=== PATIENT | male | born 1970 | race Caucasian/White ===

== ENCOUNTER 2017-04-03 18:13 | Inpatient (IN) | payer OTHER ==
[~2017-04-03] VITALS: Ht 188 cm; Wt 81.0 kg
--- NOTE | ~2017-04-03 | DS ---
Unit #: [id number] #: [id number] Patient: KARLA POOLE [id number] [facility]. [place], [place] [address] [id number] MR#: [id number] NAME: KARLA POOLE ROOM: [facility] Age: 46 Sex: M Admission Date: 04/03/2017 : 1970 Discharge Date: 04/04/2017 Attending Physician: Maximiliano Castillo M.D. Referring Physician: Evan Canchola M.D. Primary Care Physician: Evan Canchola M.D. DISCHARGE SUMMARY CHIEF COMPLAINT Found down. HISTORY OF PRESENT ILLNESS This is a 46-year-old gentleman who has a history of emphysema, anxiety, depression and epilepsy but has not had any seizures for the last 8 years. Approximately one month ago his Keppra was decreased to 500 mg twice a day from 1 gram twice a day. He was well, according to this . Complained of some mild nausea, per phone call at 1:30. At 5:30 in the evening his found him to be basically unresponsive and was brought to the emergency room. In the emergency room, according to the ER T sheet, there was concern of overdose, but the insists that no extra pills were taken. He is on multiple medications, however. Although it is not well documented, apparently had a seizure, ultimately got intubated. He received Narcan initially in the ER, ultimately received etomidate, vecuronium, Keppra, Vimpat. Our neurologist [place] of the country; however, he has been communicated with and has suggested transfer to [facility] [place] [facility] for further workup. The concern is nonconvulsive status. He has been bolused with Keppra, Vimpat and is now on a Versed drip, per his recommendations. Obviously the patient is heavily sedated, unresponsive and cannot add to the history. PAST MEDICAL HISTORY Past medical history is remarkable for emphysema, anxiety, depression and epilepsy. MEDICATIONS His medications at home are somewhat unclear. He was on his Keppra. He has an albuterol inhaler, which he rarely uses, Klonopin, Percocet, possibly Remeron. The says she does not know all of his medications. ALLERGIES No known medical allergies. SOCIAL HISTORY He smokes, socially drinks. No recreational drug use, except marijuana. FAMILY HISTORY Family history is basically unobtainable. REVIEW OF SYSTEMS Review of systems is unobtainable from the patient obviously. The Unit #: [id number] #: [id number] Patient: KARLA POOLE states that he has had no fever, any type of URI symptoms, no vomiting, mild nausea, no abdominal pain, hematuria, leg pain, swelling, focal weakness, paresthesias, chills, shortness of breath, etc. The said that the patient was in his normal state of health. He has chronic headaches, but his headaches have not changed in quality or quantity or character. PHYSICAL EXAMINATION GENERAL: Examination reveals a gentleman who is unresponsive. VITAL SIGNS: He is afebrile. Pulse 96, respiratory rate 17, blood pressure 144/70. He is 6'2", 178 pounds. HEENT: Pupils are sluggish at best. He is unresponsive. Head atraumatic. He is orally intubated. NECK: Supple but, again, heavily sedated. CHEST: Equal breath sounds. No wheeze, stridor, consolidation. CARDIAC: Examination reveals a regular rate and rhythm. No pathologic murmur, rub or gallop. ABDOMEN: Abdomen is soft, nontender. No hepatomegaly or rebound. EXTREMITIES: Extremities reveal no clubbing, cyanosis or edema. No calf tenderness. SKIN: Warm and dry without rash or diaphoresis. NEUROLOGIC: Unresponsive. DIAGNOSTIC STUDIES IMAGING: Chest x-ray - ET tube in adequate position. Some scattered subsegmental atelectasis. No obvious pneumonia. LABORATORY EXAMINATION: His pH is 7.3, pCO2 38, pO2 248 on assist control of 16, breathing 16, tidal volume of 550, 50% and 5 of PEEP. His BUN is 14, creatinine is 1, ammonia 20, lactic acid 0.7. Tylenol, salicylate, alcohol levels negative. INR normal. Cardiac enzymes normal. White blood cell count 14.2, hemoglobin 12.4, platelet count 175. Tox screen positive for benzodiazepines, marijuana and TCA. Urinalysis unremarkable. Blood cultures performed and are pending. CARDIOVASCULAR: EKG fairly unremarkable. QRS mildly widened. IMPRESSION Found down. At this point the etiology of his unresponsiveness initially is unclear. Certainly has exposure to multiple mind-altering medications, so overdose must be considered. He does have epilepsy and apparently has had multiple seizures through the night, although they were short lived, according to the few nursing notes to which I have access. Nonconvulsive status must be considered. Other problems include a history of emphysema, tobacco use, anxiety and depression, and mild non-gap acidosis. PLAN I will adjust antibiotics in the off chance of meningitis. Consider a lumbar puncture. Transfer to [facility] for EEG. Unfortunately, our neurologist is out of the country. No one is present to read an EEG and certainly must rule out nonconvulsive status. I am not convinced that is the etiology of his coma. However, for now, will follow guidelines of our neurologist, transfer, heavily sedate and treat possible seizures. Certainly, workup for other causes is mandatory. Of note, initial CT scan of the head was normal. TRANSFER MEDICATIONS 1. A Versed drip. Unit #: [id number] #: [id number] Patient: KARLA POOLE 2. Rocephin 2 grams q.12. 3. Vancomycin, pharmacy to dose. 4. Keppra 1 gram b.i.d. 5. Vimpat 200 mg t.i.d. 6. Pepcid 20 mg b.i.d. 7. DVT prophylaxis, SCDs. 8. Blood thinners will be held in case of procedures required. DIET NPO for now. ACTIVITY ICU mechanical ventilation. DISPOSITION [facility]. Dictated by... Maximo Benitez M.D. NYA/narinder TD: 04/04/2017 09:02 JOB #: [id number] DISCHARGE SUMMARY Page 1 of 1 X Maximo Benitez MD X DISCHARGE SUMMARY
--- NOTE | ~2017-04-03 | CT71 ---
[facility] A Service of [facility] & [facility] RADIOLOGY TEXT RESULTS PATIENT: KARLA POOLE LOCATION: [facility]3 [facility]3-14 : [birth year] UNIT #: [id number] AGE: [address]: Maximiliano Castillo MD SEX: M ORDER DR: [id number] [facility] [address] [place], [place] [address] [id number] E MR#: [id number] Acc #: [id number] NAME: KARLA POOLE : 1970 SEX: M STUDY DATE/TIME: 04/03/2017 19:13 UNIT: [facility] ROOM: STUDY DESCRIPTION: CT Head Wo Contrast Attending Physician: Michelle Devi M.D. Referring Physician: Evan Canchola M.D. Ordering Physician: Michelle Devi M.D. Primary Care Physician: Evan Canchola M.D. MEDICAL IMAGING REPORT This report is preliminary unless electronic signature is present EXAM CT head 04/03/2017 HISTORY Seizures. Unconscious. Unresponsive prior to arrival today. TECHNIQUE CT head performed skull base through vertex. This CT exam was performed with one or more of the following radiation dose reduction techniques: automatic exposure control, adjustment of mA and/or kV according to patient size, and iterative reconstruction. FINDINGS Brainstem unremarkable. Cerebellum and cerebral hemispheres show normal peraza matter-white matter differentiation. No hemorrhage. No evidence of acute cortical ischemia. The midline structures are nondisplaced. The basal ganglia are intact. The ventricles, cisterns and sulci are normal in size and contour. The intraorbital soft tissues are unremarkable. There is no intra- or extraaxial mass effect or abnormal intracranial fluid collection. Study degraded by streak artifact from supportive equipment adjacent to the head, not moved out of field of view prior to study. There is mucosal thickening in frontal, ethmoid, maxillary sinuses. There is no indication of acute sinusitis. No fracture. IMPRESSION 1. No acute abnormality is seen in the brain. If the patient has ongoing neurologic symptoms, consider follow-up imaging. 2. Mild mucosal thickening frontal, ethmoid, maxillary sinuses. There is no indication of acute sinusitis. [facility] A Service of [facility] & [facility] RADIOLOGY TEXT RESULTS PATIENT: KARLA POOLE LOCATION: [facility]3 [facility]3-14 : [birth year] UNIT #: [id number] AGE: [address]: Maximiliano Castillo MD SEX: M ORDER DR: Dictated by... Travon Feliz M.D. THIS IS AN ELECTRONICALLY VERIFIED REPORT Travon Feliz M.D. at 04/03/2017 11:32 PM KORINA/tomas TD: 04/03/2017 20:44 JOB #: [id number] MEDICAL IMAGING REPORT Page 1 of 1 COPY
--- NOTE | ~2017-04-03 | CR72 ---
[facility] A Service of [facility] & [facility] RADIOLOGY TEXT RESULTS PATIENT: KARLA POOLE [facility] [birth year] UNIT #: [id number] AGE: [address]: Maximiliano Castillo MD SEX: M ORDER DR: [id number] [facility] [address] [place], [place] [address] [id number] MR#: [id number] Acc #: [id number] NAME: KARLA POOLE : 1970 SEX: M STUDY DATE/TIME: 04/03/2017 18:55 UNIT: [facility] ROOM: STUDY DESCRIPTION: CR Chest Single View Portable Attending Physician: Michelle Devi M.D. Referring Physician: Evan Canchola M.D. Ordering Physician: Angeline Infante M.D. Primary Care Physician: Evan Canchola M.D. MEDICAL IMAGING REPORT This report is preliminary unless electronic signature is present EXAM Portable chest, 04/03/2017. HISTORY Respiratory failure, intubated, patient unconscious and unresponsive, found down. History of seizures. FINDINGS There is no prior chest radiograph for comparison. The heart is normal in size. The tip of the endotracheal tube is approximately 4 cm above the mehul. Right subclavian central line tip is in the superior vena cava. There is no pneumothorax. Nasogastric tube has been inserted with tip below the diaphragm not visualized. Poor inspiratory result with bibasilar atelectasis. Lungs are otherwise clear. There are no pleural effusions. IMPRESSION Endotracheal tube 4 cm above the mehul. Right subclavian central line tip SVC. No pneumothorax. Nasogastric tube tip below the diaphragm not visualized. Bibasilar atelectasis. Dictated by... Elroy Garvey M.D. THIS IS AN ELECTRONICALLY VERIFIED REPORT Elroy Garvey M.D. at 04/04/2017 7:36 AM JULIO/sandy TD: 04/03/2017 20:23 JOB #: [id number] MEDICAL IMAGING REPORT [facility]. [facility] A Service of [facility] & [facility] RADIOLOGY TEXT RESULTS PATIENT: KARLA POOLE LOCATION: [facility]14 : [birth year] UNIT #: [id number] AGE: [address]: Maximiliano Castillo MD SEX: M ORDER DR: Page 1 of 1 COPY
--- NOTE | ~2017-04-03 | EKG ---
PATIENT: KARLA POOLE UNIT #: [id number] Ventricular Rate: 79 BPM Atrial Rate: 79 BPM P-R Interval: 190 ms QRS Duration: 170 ms Q-T Interval: 470 ms QTC Calculation(Bezet): 538 ms P [place]: 38 degrees Calculated R [place]: 105 degrees Calculated T [place]: 45 degrees Diagnosis Line: Normal sinus rhythm Diagnosis Line: Rightward axis Diagnosis Line: Non-specific intra-ventricular conduction block Diagnosis Line: Abnormal ECG Diagnosis Line: Diagnosis Line: Confirmed by ISIDORO BEAVERS MD ([id number]) on 04/04/2017 Diagnosis Line: 7:39:28 PM INTERPRETING MD: RUTHANN ANGULO
--- NOTE | ~2017-04-03 | CR72 ---
[facility] A Service of [facility] & [facility] RADIOLOGY TEXT RESULTS PATIENT: KARLA POOLE LOCATION: [address] : [birth year] UNIT #: [id number] AGE: [address]: Maximiliano Castillo MD SEX: M ORDER DR: [id number] [facility] [address] [place], [place] [address] [id number] I MR#: [id number] Acc #: [id number] NAME: KARLA POOLE : 1970 SEX: M STUDY DATE/TIME: 04/04/2017 2:24 UNIT: [facility] ROOM: [facility] STUDY DESCRIPTION: CR Chest Single View Portable Attending Physician: Maximiliano Castillo M.D. Referring Physician: Evan Canchola M.D. Ordering Physician: Maximiliano Castillo M.D. Primary Care Physician: Evna Canchola M.D. MEDICAL IMAGING REPORT This report is preliminary unless electronic signature is present EXAMINATION AP portable chest DATE: 04/04/2017 HISTORY 46-year-old male with risk heart failure, shortness of breath. Symptoms began 2 days ago. Unresponsive. Found down. Previous history of seizures. COMPARISON AP portable chest 04/03/2017. FINDINGS ET tube tip lies in the upper thoracic trachea approximately 7.2 cm above the mehul. Right neck approach central line extends to the upper SVC level. There is linear bibasilar subsegmental atelectasis or scarring without significant change. Normal heart size. The NG tube is shallow, with the tip located at the esophagogastric junction and the side-hole in the lower thoracic esophageal region. IMPRESSION 1. The NG tube is shallow with the tip located at the esophagogastric junction. Recommend advancing several centimeters into the stomach. 2. Persistent bibasilar linear band-like subsegmental atelectasis. 3. ET tube tip in the upper thoracic trachea about 7 cm above the mehul, unchanged. Dictated by... Nida Lewis M.D. THIS IS AN ELECTRONICALLY VERIFIED REPORT Nida Lewis M.D. at 04/04/2017 9:55 PM [facility]/m [facility] A Service of [facility] & [facility] RADIOLOGY TEXT RESULTS PATIENT: KARLA POOLE LOCATION: [address] : [birth year] UNIT #: [id number] AGE: [address]: Maximiliano Castillo MD SEX: M ORDER DR: TD: 04/04/2017 07:24 JOB #: [id number] MEDICAL IMAGING REPORT Page 1 of 1 COPY
[~2017-04-03 18:13] MED LIST: ALLEGRA-D1 TAB.SR1 PO; KEPPRA750 MG PO; LORTAB 5/500 TA1 TA2 PO; Z-CLINZ 10 PAC1 EA PO
[2017-04-03 18:42] LABS: ARTERIAL BLD GAS O2 SATURATION 96.7 % (90.0-100.0); ARTERIAL BLOOD GAS MET HB 0.8 %sat (0.0-2.0); ARTERIAL BLOOD GAS PCO2 39.4 mmHg (35.0-45.0); ARTERIAL BLOOD GAS pH 7.334 (7.350-7.450)
[2017-04-03 18:44] LABS: ARTERIAL BLOOD GAS ART SITE RIGHT FEMORAL; ARTERIAL BLOOD GAS DELIVERY VENT; ARTERIAL BLOOD GAS VENT MODE AC; ARTERIAL DRAW? YES
[2017-04-03 19:16] LABS: URINE SOURCE CATH
[2017-04-03 19:19] LABS: POC - CKMB <1.0 ng/mL (0.0-7.9); POC - TROPONIN <0.05 ng/mL (<=0.05)
[2017-04-03 19:22] LABS: URINE APPEARANCE CLEAR; URINE BILIRUBIN NEG (NEG); URINE BLOOD NEG (NEG); URINE COLOR YELLOW; URINE GLUCOSE NEG (NEG); URINE KETONE NEG (NEG); URINE LEUKOCYTE ESTERASE NEG (NEG); URINE NITRATE NEG (NEG); URINE PROTEIN NEG (NEG); URINE SPECIFIC GRAVITY 1.011 (1.003-1.035); URINE UROBILINOGEN 0.2 MG/DL (NEG)
[2017-04-03 19:23] LABS: BASOPHIL% 0.3 % (0-2.5); EOSINOPHIL% 0.2 % (0.0-7.0); HEMATOCRIT 38.4 % (38.0-50.0); HEMOGLOBIN 12.9 gm/dL (13.0-16.0); LYMPHOCYTE# 0.9 X10e3 (1.0-3.5); LYMPHOCYTE% 7.5 % (17.0-45.0); MEAN CELL VOLUME 91.2 FL (83-96); MEAN CORPUSCULAR HEMOGLOBIN 30.6 PG (28-34); MEAN CORPUSCULAR HGB CONC 33.6 g/dL (30-36); MEAN PLATELET VOLUME 9.2 FL (6.5-11.5); MONOCYTE# 0.4 X10e3 (0-1.0); MONOCYTE% 3.1 % (3.0-12.0); NEUTROPHIL# 10.4 X10e3 (1.5-7.1); NEUTROPHIL% 88.9 % (40-75); PLATELET COUNT 180 X10e3 (140-420); RED BLOOD COUNT 4.22 X10e (3.90-5.60); RED CELL DISTRIBUTION WIDTH 14.6 % (11.0-15.5); WHITE BLOOD COUNT 11.7 X10e3 (4.0-10.5)
[2017-04-03 19:34] LABS: AMPHETAMINE NEG (NEG); BARBITURATES NEG (NEG); BENZODIAZEPINES POS (NEG); COCAINE NEG (NEG); MARIJUANA POS (NEG); OPIATES NEG (NEG); TRICYCLIC ANTIDEPRESSANTS POS (NEG); U METHADONE NEG (NEG)
[2017-04-03 19:53] LABS: DIFF IND NO
[2017-04-03 19:54] LABS: CULTURE INDICATED? NO
[2017-04-03 20:00] LABS: INR 1.2; PARTIAL THROMBOPLASTIN TIME 30.5 SECONDS (23.5-31.3); PROTHROMBIN TIME (PATIENT) 12.5 SECONDS (10.0-11.7)
[2017-04-03 20:01] LABS: ACETAMINOPHEN <10 ug/mL; ALBUMIN SERUM 3.5 g/dL (3.5-5.0); ALCOHOL BLOOD <5 mg/dL (0); ALKALINE PHOSPHATASE 72 U/L (32-92); ALT (SGPT) 10 U/L (10-40); AST (SGOT) 13 U/L (10-42); BILIRUBIN, DIRECT 0.1 mg/dL (0.0-0.2); BILIRUBIN,INDIRECT 0.5 mg/dL (0.0-0.9); BILIRUBIN,TOTAL 0.6 mg/dL (0.2-2.0); BLOOD UREA NITROGEN 15 mg/dL (9-23); BUN/CREATININE RATIO 13.63; CALCIUM SERUM 7.6 mg/dL (8.4-10.2); CARBON DIOXIDE 21 mmol/L (22-31); CHLORIDE 114 mmol/L (100-111); CREATININE SERUM 1.1 mg/dL (0.6-1.4); GLUCOSE FASTING 111 mg/dL (70-110); POTASSIUM 2.9 mmol/L (3.5-5.1); PROTEIN TOTAL SERUM 6.1 g/dL (6.0-8.3); SALICYLATE <4.0 mg/dL; SODIUM 140 mmol/L (135-145)
[2017-04-04] MEDS ORDERED: KEPPRA1000 MG PO (00:33)
[2017-04-04] MEDS ORDERED: KEPPRA500 MG PO (00:34)
[2017-04-04] MEDS ORDERED: KLONOPIN2 MG PO (00:34)
[2017-04-04] MEDS ORDERED: AMITRYPTYLINE PO (00:37)
[2017-04-04] MEDS ORDERED: PERCOCET10 PO (00:37)
[2017-04-04 04:09] LABS: ARTERIAL BLD GAS O2 SATURATION 98.8 % (90.0-100.0); ARTERIAL BLOOD GAS CARBOXY HB 0.3 %sat (0.0-9.0); ARTERIAL BLOOD GAS HCO3 18.8 mmol/L; ARTERIAL BLOOD GAS MET HB 0.8 %sat (0.0-2.0); ARTERIAL BLOOD GAS pH 7.304 (7.350-7.450)
[2017-04-04 04:18] LABS: ARTERIAL BLOOD GAS ALLEN TEST NORMAL; ARTERIAL BLOOD GAS ART SITE RIGHT RADIAL; ARTERIAL BLOOD GAS DELIVERY VENT; ARTERIAL BLOOD GAS VENT MODE AC; ARTERIAL DRAW? YES
[2017-04-04 06:22] LABS: BASOPHIL% 0.1 % (0-2.5); HEMATOCRIT 37.7 % (38.0-50.0); HEMOGLOBIN 12.4 gm/dL (13.0-16.0); LYMPHOCYTE# 1.1 X10e3 (1.0-3.5); LYMPHOCYTE% 7.7 % (17.0-45.0); MEAN CELL VOLUME 91.9 FL (83-96); MEAN CORPUSCULAR HEMOGLOBIN 30.3 PG (28-34); MEAN PLATELET VOLUME 9.6 FL (6.5-11.5); MONOCYTE# 0.6 X10e3 (0-1.0); MONOCYTE% 4.5 % (3.0-12.0); NEUTROPHIL# 12.5 X10e3 (1.5-7.1); NEUTROPHIL% 87.7 % (40-75); PLATELET COUNT 175 X10e3 (140-420); RED CELL DISTRIBUTION WIDTH 14.6 % (11.0-15.5); WHITE BLOOD COUNT 14.2 X10e3 (4.0-10.5)
[2017-04-04 06:30] LABS: DIFF IND NO
[2017-04-04 07:12] LABS: ALBUMIN SERUM 3.2 g/dL (3.5-5.0); BILIRUBIN,TOTAL 0.6 mg/dL (0.2-2.0); CALCIUM SERUM 7.5 mg/dL (8.4-10.2); GLOM FILT RATE Estimated 88.6 mL/min (>60); MAGNESIUM 2.1 mg/dL (1.6-3.0); POTASSIUM 3.9 mmol/L (3.5-5.1); PROTEIN TOTAL SERUM 5.7 g/dL (6.0-8.3)
== END 2017-04-04 10:45 | disposition hospice, home (50) | DRG 100 ==
LOC: CED 18:13 → CEDOF 20:46 → CICCU3 21:14 → CED 21:14 → CICCU3 04-04 00:16 → CEDOF 04-04 00:16 → CICCU3 04-04 10:45
PROVIDERS: Emergency Medicine; Internal Medicine
PROC: 0BH17EZ Insertion of Endotracheal Airway into Trachea, Via Natural or Artificial Opening (ICD-10-PCS; principal; 2017-04-03)
PROC: 5A1935Z Respiratory Ventilation, Less than 24 Consecutive Hours (ICD-10-PCS; 2017-04-03)
PROC: 05H533Z Insertion of Infusion Device into Right Subclavian Vein, Percutaneous Approach (ICD-10-PCS; 2017-04-03)
DX: G40.909 Epilepsy, unspecified, not intractable, without status epilepticus (principal); R40.20 Unspecified coma; E87.2 Acidosis; F32.9 Major depressive disorder, single episode, unspecified; F17.210 Nicotine dependence, cigarettes, uncomplicated; F41.9 Anxiety disorder, unspecified; J43.9 Emphysema, unspecified
CPT/HCPCS: 31500; 36556; 36600; 51702; 70450; 71010; 80048; 80053; 80076; 80307; 81003; 82140; 82550; 82553; 82803; 83605; 83735; 84484; 85025; 85610; 85730; 87040; 93005; 94002; 94003; 94761; 96361; 96365; 99291; C9254; G0480; J0456; J0696; J1953; J2060; J2250; J3370; J3411; J3475